=== PATIENT | female | born 1970 | race Hispanic/Latino ===

== ENCOUNTER 2017-07-23 19:54 | Emergency (ER) | payer OTHER ==
[2017-07-23] MEDS ORDERED: Bacitracin 500 Units/gm Oint Foilpak UD TOP STA (20:07)
[2017-07-23 20:08] VITALS: BMI 32.3
--- NOTE | 2017-07-23 20:26 | ED PDOC ---
Arrival/HPI - General Chief Complaint: Trauma Time Seen by Provider: 07/23/17 20:03 Historian: Patient - History of Present Illness Narrative History of Present Illness (Text): 07/23/17 20:15 A 47 year old female presents to the emergency department for evaluation after mechanical fall prior to arrival. Patient reports while walking home she did not notice a pipe on the floor and tripped landing on her hands and knees then rolling over onto her right shoulder. She complains of right shoulder, right hand and right knee pain. Patient denies any other injuries, loss of consciousness, head trauma, headache, dizziness, neck pain, nausea, vomiting, abdominal pain, back pain, chest pain, shortness of breath or any other complaints. Patient reports her tetanus shot was updated last month. Denies anticoagulant use. Time/Duration: Prior to Arrival Context: Tripped Past Medical History - Provider Review Nursing Documentation Reviewed: Yes - Infectious Disease Hx of Infectious Diseases: None - Tetanus Immunization Tetanus Immunization: Unknown - Endocrine/Metabolic Hx Hypothyroidism: Yes - Psychiatric Hx Substance Use: No - Surgical History Other/Comment: laminectomy - Anesthesia Hx Anesthesia: Yes Hx Anesthesia Reactions: No Hx Malignant Hyperthermia: No Family/Social History - Physician Review Nursing Documentation Reviewed: Yes Family/Social History: No Known Family HX Smoking Status: Never Smoked Hx Alcohol Use: No Hx Substance Use: No Allergies/Home Meds Allergies/Adverse Reactions: Allergies No Known Allergies Allergy (Verified 04/23/13 06:49) per patient Home Medications: Home Meds Medication Instructions Recorded Confirmed Levothyroxine Sodium [Tirosint] 125 mcg PO DAILY 07/23/17 07/23/17 Review of Systems - Physician Review All systems were reviewed & negative as marked: Yes - Review of Systems Respiratory: absent: SOB Cardiovascular: absent: Chest Pain Gastrointestinal: absent: Abdominal Pain, Nausea, Vomiting Musculoskeletal: Other (Right shoulder, Right hand and Right knee pain). absent : Back Pain, Neck Pain Neurological: absent: Headache, Dizziness Physical Exam Vital Signs Temp Pulse Resp BP Pulse Ox 07/23/17 22:04 69 18 131/72 98 07/23/17 19:55 98.2 F 72 18 128/76 98 Appearance: Positive for: Well-Appearing, Non-Toxic, Comfortable Pain Distress: None Mental Status: Positive for: Alert and Oriented X 3 - Systems Exam Head: Present: Atraumatic, Normocephalic Pupils: Present: PERRL Extroacular Muscles: Present: EOMI Conjunctiva: Present: Normal Mouth: Present: Moist Mucous Membranes Neck: Present: Normal Range of Motion. No: MIDLINE TENDERNESS, Paraspinal Tenderness Respiratory/Chest: Present: Clear to Auscultation, Good Air Exchange. No: Respiratory Distress, Accessory Muscle Use Cardiovascular: Present: Regular Rate and Rhythm, Normal S1, S2. No: Murmurs Abdomen: Present: Normal Bowel Sounds. No: Tenderness, Distention, Peritoneal Signs Back: Present: Normal Inspection. No: Midline Tenderness, Paraspinal Tenderness Upper Extremity: Present: Normal ROM, NORMAL PULSES, Tenderness (to right base of 5th digit), Neurovascularly Intact. No: Cyanosis, Edema, Swelling, Erythema , Temperature Abnormalties, Deformity Lower Extremity: Present: NORMAL PULSES, Normal ROM, Neurovascularly Intact. No : Edema, CALF TENDERNESS, Tenderness, Swelling, Erythema, Deformity, Temperature Abnormalties Neurological: Present: GCS=15, CN II-XII Intact, Speech Normal Skin: Present: Warm, Dry, Normal Color, Abrasion (to right knee and palm of right hand). No: Rashes Psychiatric: Present: Alert, Oriented x 3, Normal Insight, Normal Concentration Medical Decision Making ED Course and Treatment: 07/23/17 20:15 Impression: A 47 year old female with right shoulder, hand and knee pain after mechanical fall Plan: -- Right shoulder xray -- Right wrist xray -- Right hand xray -- Right knee xray -- Bacitracin and Motrin -- Reassess and disposition Progress Notes: 07/23/17 21:37 Xrays negative for fracture. Patient requesting flexeril on discharge for muscle spasm. - Lab Interpretations I have reviewed the lab results: Yes - RAD Interpretation Radiology Orders: 07/23/17 20:04 HAND RIGHT 3 VIEWS [RAD] Stat KNEE W PATELLA RIGHT 3 VIEW [RAD] Stat SHOULDER RIGHT [RAD] Stat WRIST, RIGHT 3 VIEWS [RAD] Stat - Medication Orders Current Medication Orders: Discontinued Medications Bacitracin (Bacitracin) 1 ea TOP STAT STA Stop: 07/23/17 20:08 Last Admin: 07/23/17 20:48 Dose: 1 ea Cyclobenzaprine HCl (Flexeril) 10 mg PO STAT STA Stop: 07/23/17 21:42 Last Admin: 07/23/17 22:03 Dose: 10 mg Ibuprofen (Motrin Tab) 600 mg PO STAT STA Stop: 07/23/17 20:07 Last Admin: 07/23/17 20:47 Dose: 600 mg MAR Pain/Vitals Document 07/23/17 20:47 SF (Rec: 07/23/17 20:47 SF [facility] [id number] Pain Reassessment Is This A Pain ReAssessment? Yes Sleep Is patient sleeping during reassessment? No Presence of Pain Presence of Pain Yes - Scribe Statement The provider has reviewed the documentation as recorded by the Jasibaleks Hancock Provider Scribe Attestation: All medical record entries made by the Scribe were at my direction and personally dictated by me. I have reviewed the chart and agree that the record accurately reflects my personal performance of the history, physical exam, medical decision making, and the department course for this patient. I have also personally directed, reviewed, and agree with the discharge instructions and disposition. Disposition/Present on Arrival - Present on Arrival Any Indicators Present on Arrival: No History of DVT/PE: No History of Uncontrolled Diabetes: No Urinary Catheter: No History of Decub. Ulcer: No History Surgical Site Infection Following: None - Disposition Have Diagnosis and Disposition been Completed?: Yes Diagnosis: Contusion, Fall Disposition: HOME/ ROUTINE Disposition Time: 21:37 Patient Plan: Discharge Condition: GOOD Discharge Instructions (ExitCare): Contusion in Adults (ED) Additional Instructions: Follow-up with PMD within 2 days. Return to ED if condition worsens. Motrin for pain. Prescriptions: Cyclobenzaprine [Cyclobenzaprine HCl] 10 mg PO TID PRN #20 tab PRN Reason: Pain, Mild (1-3) Referrals: Mariely Cronin MD [Primary Care Provider] - Follow up with primary Forms: [employer] (Ukrainian)
[2017-07-23 21:48] VITALS: RESP 18; TEMP 98.2; O2SAT 98
[2017-07-23 22:05] VITALS: BP 131/72; PULSE 69
--- NOTE | 2017-07-24 08:47 | RAD ---
PROCEDURE: Right Wrist Radiographs. HISTORY: Right wrist pain after fall COMPARISON: None. FINDINGS: BONES: Bone alignment and mineralization are normal. There is no acute displaced fracture or bone destruction. JOINTS: The proximal and distal carpal rows are maintained. No dislocation. SOFT TISSUES: Normal. OTHER FINDINGS: None. IMPRESSION: No acute fracture or dislocation.
--- NOTE | 2017-07-24 08:48 | RAD ---
PROCEDURE: Right Hand Radiographs. HISTORY: Right hand pain COMPARISON: None. FINDINGS: BONES: Bone alignment and mineralization are normal. There is no acute displaced fracture or bone destruction. JOINTS: Normal. No osteoarthritic changes. SOFT TISSUES: Normal. OTHER FINDINGS: None. IMPRESSION: No acute fracture, dislocation or significant degenerative osteoarthrosis.
--- NOTE | 2017-07-24 08:49 | RAD ---
PROCEDURE: Right Knee Radiographs. HISTORY: Right knee pain after fall COMPARISON: None. FINDINGS: BONES: Bone alignment and mineralization are normal. There is no acute displaced fracture or bone destruction. JOINTS: There is mild degenerative osteoarthrosis in the medial compartment with mild reduced joint space and marginal spurring. JOINT EFFUSION: None. OTHER FINDINGS: None. IMPRESSION: No acute fracture or dislocation.
--- NOTE | 2017-07-24 08:58 | RAD ---
PROCEDURE: Radiographs of the Right Shoulder HISTORY: R shoulder pain after fall COMPARISON: No prior. FINDINGS: BONES: Bone alignment and mineralization are normal. There is no acute displaced fracture or bone destruction. JOINTS: There is mild degenerative osteoarthrosis in the acromioclavicular joint. The glenohumeral joint is normal. SOFT TISSUES: Normal. OTHER FINDINGS: None. IMPRESSION: No acute fracture or dislocation. 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
== END 2017-07-23 22:04 | disposition home or self-care (01) ==
LOC: ED 19:54
DX: S80.01XA Contusion of right knee, initial encounter (principal); S60.221A Contusion of right hand, initial encounter; W01.0XXA Fall on same level from slipping, tripping and stumbling without subsequent striking against object, initial encounter; Y93.01 Activity, walking, marching and hiking; Y92.89 Other specified places as the place of occurrence of the external cause

== ENCOUNTER 2018-08-20 19:20 | Emergency (ER) | payer OTHER ==
[2018-08-20 19:20] VITALS: BMI 32.3
--- NOTE | 2018-08-20 19:27 | ED PDOC ---
Arrival/HPI - General Time Seen by Provider: 08/20/18 19:26 Historian: Patient - History of Present Illness Narrative History of Present Illness (Text): 08/20/18 19:27 48 y/o female, pmh including hypothyroidism, last tetanus under 5 years ago, nkda, c/o fall and head injury x 1 hour. Pt. stated she was walking on the street, didn't see the curb completely, tripped and landed on the rt. frontal forehead and rt. sided of the anterior rib/clavicle region, landed on the bilateral kneed and rt. elbow but not much pain, no numbness or tingling, no LOC, no facial or eye region pain, no night sweat, no rash, no palpitation or chest pain, no numbness or tingling, no other medical or psychological complaints, no hematuria, no flank or abdominal/pelvic injury. Past Medical History - Provider Review Nursing Documentation Reviewed: Yes - Infectious Disease Hx of Infectious Diseases: None - Tetanus Immunization Tetanus Immunization: Unknown - Endocrine/Metabolic Hx Hypothyroidism: Yes - Psychiatric Hx Substance Use: No - Surgical History Other/Comment: laminectomy - Anesthesia Hx Anesthesia: Yes Hx Anesthesia Reactions: No Hx Malignant Hyperthermia: No Family/Social History - Physician Review Nursing Documentation Reviewed: Yes Family/Social History: Unknown Family HX Smoking Status: Never Smoked Hx Alcohol Use: No Hx Substance Use: No Allergies/Home Meds Allergies/Adverse Reactions: Allergies No Known Allergies Allergy (Verified 08/20/18 19:33) per patient Home Medications: Home Meds Medication Instructions Recorded Confirmed Levothyroxine Sodium [Tirosint] 125 mcg PO DAILY 07/23/17 08/20/18 Review of Systems - Review of Systems Constitutional: absent: Fatigue, Fevers Eyes: absent: Vision Changes ENT: absent: Hearing Changes Respiratory: absent: SOB, Cough Cardiovascular: absent: Chest Pain Gastrointestinal: absent: Abdominal Pain, Diarrhea, Nausea, Vomiting Musculoskeletal: Arthralgias, Myalgias. absent: Back Pain, Neck Pain, Joint Swelling Skin: absent: Rash, Pruritis, Skin Lesions Neurological: Headache. absent: Dizziness Hemo/Lymphatic: absent: Adenopathy, Easy Bleeding Psychiatric: absent: Anxiety, Depression, Suicidal Ideation Physical Exam Vital Signs Reviewed: Yes Temperature: Afebrile Blood Pressure: Normal Pulse: Regular Respiratory Rate: Normal Appearance: Positive for: Well-Appearing, Non-Toxic, Comfortable Pain Distress: None Mental Status: Positive for: Alert and Oriented X 3 - Systems Exam Head: Present: Atraumatic, Normocephalic, Tenderness (rt. lateral forehead. ), Other (Facial: no facial or periorbital tenderness. ). No: Contusion, Swelling, Ecchymosis, Abrasion, Laceration Pupils: Present: PERRL Extroacular Muscles: Present: EOMI Conjunctiva: Present: Normal Ears: Present: NORMAL TM, Normal Canal. No: Erythema Mouth: Present: Moist Mucous Membranes Pharnyx: Present: Normal. No: ERYTHEMA, EXUDATE, TONSILS ENLARGED Nose (External): Present: Atraumatic. No: Abrasion, Contusion, Laceration, Lesions Nose (Internal): Present: Normal Inspection, No Active Bleeding. No: Rhinorrhea, Septal Hematoma, Epistaxis Neck: Present: Normal Range of Motion, Trachea Midline. No: Meningeal Signs, MIDLINE TENDERNESS, Paraspinal Tenderness, Lymphadenopathy Respiratory/Chest: Present: Clear to Auscultation, Good Air Exchange, Tender to Palpation (mild +ttp on the rt. anterior 4th rib region. ). No: Respiratory Distress, Accessory Muscle Use, Wheezes, Decreased Breath Sounds, Rales, Retracting, Rhonchi, Tachypneic Cardiovascular: Present: Regular Rate and Rhythm, Normal S1, S2. No: Murmurs Abdomen: No: Tenderness, Distention, Peritoneal Signs, Rebound, Guarding Back: Present: Normal Inspection. No: CVA Tenderness, Midline Tenderness, Paraspinal Tenderness, Pain with Leg Raise, Decubitus Ulcer Upper Extremity: Present: Normal Inspection, Other (Bilateral UE: no tenderness or swelling except mild +ttp on the rt. clavicle region, no deformity, FROM without limitation or pain, sensation intact, motor 5/5, +radial pulses, capillary refill< 2 seconds, neurovascular intact. ). No: Cyanosis, Edema Lower Extremity: Present: Normal Inspection, NORMAL PULSES, Other (Bilatera lower extremities including knees: no tenderness or swelling, no abrasion or laceration, FROM without limitation, senation intact, motor 5/5, +DPPT pulses, capillary refill< 2 seconds, neurovascular intact. ). No: Edema Neurological: Present: GCS=15, CN II-XII Intact, Speech Normal, Motor Func Grossly Intact, Gait Normal, Memory Normal Skin: Present: Warm, Dry, Normal Color. No: Rashes Psychiatric: Present: Alert, Oriented x 3, Normal Insight, Normal Concentration Medical Decision Making ED Course and Treatment: 08/20/18 19:53 -CT head -Rt. shoulder/rib/chest rays -Tylenol -Observe and reassesss 08/20/18 22:34 -Urine hcg is negative -CT head show No acute intracranial abnormality. -Rt. shoulder/PA chest ER wet read show no fracture or pneumothorax, no active disease -Rt. shoulder xray show no fracture or dislocation -Pt. feels better after medication. -Sling applied with neurovascular intact. -Discharge home with sling, motrin, bed rest, follow up with your own pmd and orthopedic within 2 days, return to the ER for any new or worsening signs or symptoms. - RAD Interpretation Radiology Orders: CT head BRAIN No acute intraparenchymal hemorrhage. No mass lesion. No CT evidence for acute territorial infarct. No midline shift or extra-axial collections. VENTRICLES: No hydrocephalus. ORBITS: The orbits are unremarkable. SINUSES AND MASTOIDS: The paranasal sinuses and mastoid air cells are clear. BONES: No fracture. SOFT TISSUES: Unremarkable. IMPRESSION: No acute intracranial abnormality. Electronically signed on Aug 20, 2018 9:42:24 PM EDT by: Kem Asif M.D., MBA Certified By [facility] & [facility] Fellowship Trained MRI and CT Specialist Rt. rib xray with chest: PROCEDURE: Radiographs of the Chest and Right Ribs. HISTORY: fall on right side COMPARISON: None available. TECHNIQUE: Frontal radiograph of the chest and multiple oblique radiographs of the right ribs were obtained. FINDINGS: RIGHT RIBS: No acute fracture or focal lesion visualized. LUNGS: Well inflated and clear. PLEURA: No pneumothorax or pleural fluid. CARDIOVASCULAR: Normal sized heart. No pulmonary vascular congestion. No atherosclerotic calcification present OTHER FINDINGS: None. IMPRESSION: No acute rib fracture. Clear lungs. Rt. shoulder xray: PROCEDURE: Radiographs of the Right Shoulder HISTORY: fall on the rt. clavicle COMPARISON: No prior. FINDINGS: BONES: Bone alignment and mineralization are normal. There is no acute displaced fracture or bone destruction. JOINTS: Mild degenerative osteoarthrosis in the acromioclavicular joint. The glenohumeral joint is normal. SOFT TISSUES: Normal. OTHER FINDINGS: None. IMPRESSION: No acute fracture or dislocation. Poultry Killer: Radiologist Disposition/Present on Arrival - Present on Arrival Any Indicators Present on Arrival: No History of DVT/PE: No History of Uncontrolled Diabetes: No Urinary Catheter: No History of Decub. Ulcer: No History Surgical Site Infection Following: None - Disposition Have Diagnosis and Disposition been Completed?: Yes Diagnosis: Fall, Contusion, Arthralgia Disposition: HOME/ ROUTINE Disposition Time: 22:37 Patient Plan: Discharge Condition: IMPROVED Additional Instructions: -Discharge home with sling, motrin, bed rest, follow up with your own pmd and orthopedic within 2 days, return to the ER for any new or worsening signs or symptoms. Prescriptions: Ibuprofen [Motrin] 600 mg PO QID PRN #30 tab PRN Reason: Other Referrals: Dimitry Webb DO [Staff Provider] - Follow up with primary [facility] [place] - Follow up with primary Forms: WORK NOTE
[2018-08-20 19:37] VITALS: O2SAT 99
[2018-08-20 23:46] VITALS: BP 134/70; PULSE 72; RESP 18; TEMP 98.3
--- NOTE | 2018-08-21 05:07 | CT ---
Date of service: 08/20/2018 PROCEDURE: CT HEAD WITHOUT CONTRAST. HISTORY: fall on rt. frontal forehead COMPARISON: None available. TECHNIQUE: Axial computed tomography images were obtained through the head/brain without intravenous contrast. Radiation dose: Total exam DLP = 1238.81 mGy-cm. This CT exam was performed using one or more of the following dose reduction techniques: Automated exposure control, adjustment of the mA and/or kV according to patient size, and/or use of iterative reconstruction technique. FINDINGS: HEMORRHAGE: No intracranial hemorrhage. BRAIN: Sanchez-white matter differentiation is preserved. There is no mass, mass effect or abnormal extra-axial fluid collection. There is no territorial infarction. The midline sagittal structures are normal. VENTRICLES: The ventricles are normal in size, shape and configuration. CALVARIUM: There is no calvarial fracture or extracranial soft tissue swelling. PARANASAL SINUSES: Predominantly clear. MASTOID AIR CELLS: Predominantly clear. OTHER FINDINGS: None. IMPRESSION: No acute intracranial abnormality. A preliminary report was provided by [email or web address].
--- NOTE | 2018-08-21 06:03 | RAD ---
Date of service: 08/20/2018 PROCEDURE: Radiographs of the Chest and Right Ribs. HISTORY: fall on right side COMPARISON: None available. TECHNIQUE: Frontal radiograph of the chest and multiple oblique radiographs of the right ribs were obtained. FINDINGS: RIGHT RIBS: No acute fracture or focal lesion visualized. LUNGS: Well inflated and clear. PLEURA: No pneumothorax or pleural fluid. CARDIOVASCULAR: Normal sized heart. No pulmonary vascular congestion. No atherosclerotic calcification present OTHER FINDINGS: None. IMPRESSION: No acute rib fracture. Clear lungs.
--- NOTE | 2018-08-21 06:03 | RAD ---
Date of service: 08/20/2018 PROCEDURE: Radiographs of the Right Shoulder HISTORY: fall on the rt. clavicle COMPARISON: No prior. FINDINGS: BONES: Bone alignment and mineralization are normal. There is no acute displaced fracture or bone destruction. JOINTS: Mild degenerative osteoarthrosis in the acromioclavicular joint. The glenohumeral joint is normal. SOFT TISSUES: Normal. OTHER FINDINGS: None. IMPRESSION: No acute fracture or dislocation.
== END 2018-08-20 23:08 | disposition home or self-care (01) ==
LOC: ED 19:20
DX: M25.521 Pain in right elbow (principal); M25.562 Pain in left knee; M25.561 Pain in right knee; W01.0XXA Fall on same level from slipping, tripping and stumbling without subsequent striking against object, initial encounter; Y93.01 Activity, walking, marching and hiking; Y92.410 Unspecified street and highway as the place of occurrence of the external cause